=== PATIENT | male | born 1955 | race Caucasian/White ===

== ENCOUNTER → 2020-07-14 | Outpatient (CLI) | payer MEDICARE, OTHER ==
--- NOTE | 2020-07-14 19:27 | Diagnostic Imaging Report ---
INDICATION: Mantle cell lymphoma. The study is performed for subsequent restaging/recurrence detection. Serum blood glucose level at the time of injection is 110 mg/dL. Patient was administered 13.9 mCi F18 FDG intravenously and PET imaging was performed from the top of the skull to mid thighs. Noncontrast CT was also performed for attenuation correction and anatomic correlation. No prior PET/CT study is available for comparison. There is symmetric activity throughout the brain. There is hypermetabolic lymphadenopathy in the cervical spine and supraclavicular regions, bilateral axillae as well as the mediastinum and cardiophrenic angle on the right. There is significant hypermetabolic lymphadenopathy in the abdomen and pelvis as well, particularly in the central retroperitoneum but portacaval and retrocrural regions, as well. There is bulky hypermetabolic lymphadenopathy along the iliac chains in the inguinal regions bilaterally. SUV in the left iliac location is approximately 7. Right groin jeyson mass demonstrates SUV of 6.3. A left periaortic jeyson mass demonstrates SUV of 6.6. IMPRESSION: Significant hypermetabolic lymphadenopathy throughout the neck, chest, abdomen and pelvis. Dictated by: Dictated on workstation # [id number]
== END ==
LOC: RAD 13:30
PROVIDERS: ATTEND Internal Medicine Hematology & Oncology
DX: C83.10 Mantle cell lymphoma, unspecified site (principal); N63.32 Unspecified lump in axillary tail of the left breast; R19.03 Right lower quadrant abdominal swelling, mass and lump; R59.0 Localized enlarged lymph nodes
CPT/HCPCS: 78815; A9552

== ENCOUNTER 2020-07-21 05:36 | Outpatient (CLI) | payer MEDICARE, OTHER ==
[~2020-07-21] VITALS: Ht 162.6 cm; Wt 65.2 kg
[2020-07-21] MEDS ORDERED: TMSL.4C PO (11:43)
[2020-07-21] MEDS ORDERED: SIMV40TA25 PO (11:43)
[2020-07-21] MEDS ORDERED: PANT40TA52 PO (11:43)
[2020-07-21] MEDS ORDERED: ONDA4TAB11 PO (11:43)
[2020-07-21] MEDS ORDERED: HYDR-3820 PO (11:43)
== END 2020-07-21 11:52 | disposition home or self-care (01) ==
LOC: PREOP 05:36
PROVIDERS: ATTEND Surgery
DX: Z01.818 Encounter for other preprocedural examination (principal)

== ENCOUNTER 2020-07-24 05:54 | Day surgery (SDC) | payer MEDICARE, OTHER ==
[2020-07-24] VITALS (10 sets, daily range): BP systolic 94–122; BP diastolic 6–54
[~2020-07-24] VITALS: Ht 162.6 cm; Wt 65.2 kg
[~2020-07-24 05:54] MED LIST: HYDR-3820 PO; ONDA4TAB11 PO; PANT40TA52 PO; SIMV40TA25 PO; TMSL.4C PO
[2020-07-24] MEDS ORDERED: ceFAZolin INJECTION 1,000 MG in WATER (STERILE) FOR INJECTION 10 ML IV ONE (06:15)
[2020-07-24] MEDS ORDERED: LACTATED RINGERS 1,000 ML IV PRN (06:15)
[2020-07-24] MEDS ORDERED: CATHETER FLUSH 10 ML SYR IV PRN (06:30)
[2020-07-24] MEDS ORDERED: proPOfol 200 MG/20 ML (DIPRIVAN) VIAL IV ONE (06:53)
[2020-07-24] MEDS ORDERED: ONDANSETRON 4 MG/2 ML (SDV) Z0FRAN ONE (06:53)
[2020-07-24] MEDS ORDERED: SEVOFLURANE (ULTANE) 15 ML INHAL SOLN ONE ×5 (06:53→09:02)
[2020-07-24] MEDS ORDERED: fentaNYL INJ 100 MCG/2 ML AMP ONE (06:53)
[2020-07-24] MEDS ORDERED: MIDAZOLAM 2 MG/2 ML (VERSED) VIAL ONE (06:53)
[2020-07-24] MEDS ORDERED: LIDOCAINE PF 2% 5 ML (XYLOCAINE) VIAL ONE (06:53)
[2020-07-24] MEDS ORDERED: 0.9% SODIUM CHLORIDE PF INJ 20 ML VIAL ONE (07:12)
[2020-07-24] MEDS ORDERED: HEParin (CENTRAL IV FLUSH) 500 UNIT/5 ML SYR ONE (07:12)
[2020-07-24] MEDS ORDERED: LIDOCAINE/EPI 1%-1:100,000 (XYLOCAINE) 20ML ONE (07:12)
--- NOTE | 2020-07-24 07:56 | Progress Note-Pre Operative ---
Pre-Operative Progress Note H&P Reviewed The H&P was reviewed, patient examined and no changes noted. Date Seen by Provider: July 24, 2020 Time Seen by Provider: 07:46 Date H&P Reviewed: July 24, 2020 Time H&P Reviewed: 07:46 Pre-Operative Diagnosis: hx non-hodgkins, left axillary mass GREGORIA QUINN DO July 24, 2020 07:56
--- NOTE | 2020-07-24 09:18 | Discharge Inst-Simple/Standard ---
Discharge Inst-Standard Patient Instructions/Follow Up Plan of Care/Instructions/FU: 2 weeks Maryann Activity as Tolerated: No Discharge Diet: Regular Diet Other Inst to Patient Follow up Appt: Make appointment for 2 week. Instructions: No lifting greater than 10 pounds. No strenuous activity. May shower in 24 hours, no tub bath or soaking. Use incentive spirometer at home as directed. No Smoking Skin/Wound Care: You have special glue over your incision that will fall off on it's own. Place ice packs on 15 min and off 30 min and repeat to reduce swelling and discomfort. Port needs to be flushed at least every 90 days. Symptoms to Report: Appetite Changes, Extremity Discoloration, Numbness/Tingling, Swelling Increased, Bleeding Excessive, Eyesight Changes, Pain Increased, Urine Color Change, Constipation(Persistent), Fever over 101 degree F, Pain/Pressure in chest, Urinating Difficulty, Cough Up/Vomit Blood, Heart Beat Irreg/Pounding, Pain/Pressure in jaw, Vaginal Bleeding Increase, Cramps in feet or legs, Lightheadedness, Pain/Pressure in shoulder, Diarrhea(Persistent), Memory Changes Suddenly, Questions/Concerns, Weight gain consecutive days, Dizziness/Fainting, Nausea/Vomiting, Shortness of Breath, Weight gain over 2 pounds If questions or concerns contact your physician Or seek help at emergency department. GREGORIA QUINN DO July 24, 2020 09:18
--- NOTE | 2020-07-24 09:27 | Progress Note-Post Operative ---
Post-Operative Progess Note Surgeon (s)/Co Founder And Cto (s) Surgeon GREGORIA QUINN DO Co Founder And Cto: na Pre-Operative Diagnosis hx non-hodgkins, left axillary mass Post-Operative Diagnosis same Procedure & Operative Findings Date of Procedure 07/24/20 Procedure Performed/Findings PROCEDURE: Right internal jugular port placement using ultrasound guidance. Excision left axillary mass 7x3.5x3cm COMPLICATIONS: None. INDICATIONS: The patient is a 64 year old male with history of nonhodkin lymphoma, has large left axillary mass. We discussed excision of left axillary mass and wishes to proceed. Patient understands the risks and benefits of port placement and wished to proceed with the procedure. Consent was signed on the chart. PROCEDURE: The patient was taken to the operating suite, was prepped and draped in the sterile fashion. A surgical pause was performed. Ultrasound was used to locate the internal jugular vein. Once located anesthetic was infiltrated above it. Using micro-access kit, the right internal vein was accessed. Dark nonpulsatile blood was withdrawn. The wire was inserted. Fluoroscopy assured proper placement. The needle was removed. The micro-access dilator was advanced over the wire and the wire was removed. The regular wire was inserted and fluoroscopy assured proper placement. The wire was then secured. Local anesthetic was used to anesthetize from the neck for tunneling down to the right chest and for pocket creation. A 15 blade scalpel was used to make an incision over the right chest. Cautery was used to dissect down to the pectoral fascia. A pocket was created with blunt dissection. The dilator sheath was then advanced over the wire under fluoroscopy and the dilator and wire were removed. The Groshong catheter was inserted through the sheath and the sheath was then removed. The Groshong wire was removed. The catheter was then tunneled to the right chest pocket. Fluoroscopy was used to cut to length and this was then attached to the port which was then placed within the pocket. The port was then accessed without difficulty. It was then flushed with saline and then heparin. The subcutaneous tissues were then reapproximated using 3-0 Vicryl. The areas were then washed and dried. Skin Affix was placed over incision. The insertion point of the neck Skin Affix was placed over the incision. The left axillary mass was then palpated. 15 blade scalpel was used to make incision over mass. Cautery was used to dissect down through the subcutaneous tissues until mass encountered. Blunt and cautery dissection was continued to be performed until the mass could be dissected around in its entirety and removed. Specimen was 7x3.5x3cm. Wound was irrigated and hemostasis achieved. Specien was sent fresh to pathology. The subcutaneous tissues were reaproximated with 3-o vicryl and skin closed with 4-0 monocryl. Skin affix was placed over incision. The patient tolerated the procedure well without complication and was taken to recovery room in stable condition. Chest x-ray is pending. Anesthesia Type general Estimated Blood Loss Estimated blood loss (mL): minimal Specimens/Packing Specimens Removed left axillary mass GREGORIA QUINN DO July 24, 2020 09:27
--- NOTE | 2020-07-24 09:28 | Diagnostic Imaging Report ---
HISTORY: Port placement COMPARISON: None TECHNIQUE: Intraoperative fluoroscopy was used for the patient's procedure. A single fluoroscopic image of the chest was saved. FLUOROSCOPY TIME: 10.7 seconds FINDINGS: Fluoroscopic images demonstrate a right-sided Port-A-Cath with tip projecting over the mid SVC. There is a lead overlying the chest, and a hyperdense structure overlying the aortic arch. IMPRESSION: 1. The right Port-A-Cath tip projects over the SVC. Dictated by: Dictated on workstation # [id number]
--- NOTE | 2020-07-24 09:46 | Diagnostic Imaging Report ---
Portable erect AP chest at 9:27. There are no prior chest examinations available for comparison. As noted on the fluoroscopic exam performed prior to this study, there is a Port-A-Cath in place on the right. The tip of the catheter overlies the midportion of superior vena cava and seems to be in good position. There is no sign of a pneumothorax on the right. The lungs are generally clear. There is no evidence for failure, pneumonia or for pleural effusion. The heart size is within normal limits. The right hilum and the superior mediastinum on the right do seem prominent. The PET/CT exam performed on 07/14/2020 did note significant hypermetabolic lymphadenopathy throughout the neck, chest, abdomen and pelvis. The osseous structures are intact. Impression: 1. There has been insertion of a Port-A-Cath on the right without apparent complication. There is no acute cardiopulmonary abnormality noted. 2. The prominence of the right hilum and the right superior mediastinum is most likely due to the lymphadenopathy seen on the PET/CT exam. Dictated by: Dictated on workstation # [id number]
--- NOTE | 2020-07-24 11:09 | Anesthesia-General Post-Op ---
General Patient Condition Mental Status/LOC: Same as Preop Cardiovascular: Satisfactory Nausea/Vomiting: Absent Respiratory: Satisfactory Pain: Controlled Complications: Absent Post Op Complications Complications None Follow Up Care/Instructions Patient Instructions None needed. Anesthesia/Patient Condition Patient Condition Patient is doing well, no complaints, stable vital signs, no apparent adverse anesthesia problems. No complications reported per nursing. AZEB AGUIRRE CRNA July 24, 2020 11:09
== END 2020-07-24 11:30 | disposition home or self-care (01) ==
LOC: SDC 05:54
PROVIDERS: ATTEND Surgery
DX: C85.14 Unspecified B-cell lymphoma, lymph nodes of axilla and upper limb (principal); K21.9 Gastro-esophageal reflux disease without esophagitis; R63.4 Abnormal weight loss; F17.210 Nicotine dependence, cigarettes, uncomplicated; Z96.653 Presence of artificial knee joint, bilateral; Z79.899 Other long term (current) drug therapy; Z82.49 Family history of ischemic heart disease and other diseases of the circulatory system; Z83.6 Family history of other diseases of the respiratory system
CPT/HCPCS: 36561; 38500; 71045; 76000; 87081; C1788

== ENCOUNTER → 2020-09-04 | Outpatient (CLI) | payer MEDICARE, OTHER ==
[~2020-09-04] MED LIST changes: +CATHETER FLUSH 10 ML SYR IV PRN
--- NOTE | 2020-09-04 16:49 | Diagnostic Imaging Report ---
INDICATION: Antineoplastic chemotherapy. Patient was administered 30.4 mCi technetium-99m pertechnetate labeled to the patient's red blood cells, and imaging of the chest was performed. The left ventricular ejection fraction is normal at 62%. IMPRESSION: Left ventricular ejection fraction 62%. Dictated by: Dictated on workstation # [id number]
== END ==
LOC: CARD 14:00
PROVIDERS: ATTEND Internal Medicine Hematology & Oncology
DX: Z51.11 Encounter for antineoplastic chemotherapy (principal); C83.10 Mantle cell lymphoma, unspecified site
CPT/HCPCS: 78472; A9560

== ENCOUNTER 2020-09-29 08:55 | Outpatient (RCR) | payer MEDICARE, OTHER ==
[2020-07-09 16:00] LABS: BASOPHILS % (AUTO) 1 % (0-10); EOSINOPHILS # (AUTO) 0.2 10^3/uL (0.0-0.3); EOSINOPHILS % (AUTO) 3 % (0-10); HEMATOCRIT 41 % (40-54); LYMPHOCYTES # (AUTO) 0.8 10^3/uL (1.0-4.0); LYMPHOCYTES % (AUTO) 16 % (12-44); MEAN CORPUSCULAR HEMOGLOBIN 29 pg (25-34); MEAN CORPUSCULAR HGB CONC 32 g/dL (32-36); MEAN CORPUSCULAR VOLUME 93 fL (80-99); MONOCYTES # (AUTO) 0.4 10^3/uL (0.0-1.0); MONOCYTES % (AUTO) 8 % (0-12); NEUTROPHILS # (AUTO) 3.5 10^3/uL (1.8-7.8); NEUTROPHILS % (AUTO) 72 % (42-75); PLATELET COUNT 162 10^3/uL (130-400); WHITE BLOOD COUNT 4.9 10^3/uL (4.3-11.0)
[2020-07-09 16:41] LABS: ALANINE AMINOTRANSFERASE 8 U/L (0-55); ALBUMIN 3.9 GM/DL (3.2-4.5); ALKALINE PHOSPHATASE 65 U/L (40-136); BILIRUBIN,TOTAL 0.6 MG/DL (0.1-1.0); BUN/CREATININE RATIO 15; CALCIUM 8.8 MG/DL (8.5-10.1); CARBON DIOXIDE 35 MMOL/L (21-32); CHLORIDE 101 MMOL/L (98-107); CREATININE SERUM 0.87 MG/DL (0.60-1.30); GFR ESTIMATED > 60; GLUCOSE 82 MG/DL (70-105); POTASSIUM 3.8 MMOL/L (3.6-5.0); SODIUM 139 MMOL/L (135-145); TOTAL PROTEIN 6.5 GM/DL (6.4-8.2); URIC ACID 5.6 MG/DL (2.6-7.2)
[2020-08-26 15:53] LABS: BASOPHILS % (AUTO) 0 % (0-10); EOSINOPHILS % (AUTO) 1 % (0-10); HEMATOCRIT 45 % (40-54); HEMOGLOBIN 14.2 g/dL (13.3-17.7); LYMPHOCYTES # (AUTO) 0.6 10^3/uL (1.0-4.0); LYMPHOCYTES % (AUTO) 14 % (12-44); MEAN CORPUSCULAR HEMOGLOBIN 29 pg (25-34); MEAN CORPUSCULAR HGB CONC 32 g/dL (32-36); MEAN CORPUSCULAR VOLUME 92 fL (80-99); MEAN PLATELET VOLUME 10.1 fL (9.0-12.2); MONOCYTES # (AUTO) 0.2 10^3/uL (0.0-1.0); MONOCYTES % (AUTO) 6 % (0-12); NEUTROPHILS # (AUTO) 3.4 10^3/uL (1.8-7.8); NEUTROPHILS % (AUTO) 80 % (42-75); PLATELET COUNT 182 10^3/uL (130-400); WHITE BLOOD COUNT 4.2 10^3/uL (4.3-11.0)
[2020-08-26 16:30] LABS: ALANINE AMINOTRANSFERASE 11 U/L (0-55); ALBUMIN 4.1 GM/DL (3.2-4.5); ALKALINE PHOSPHATASE 68 U/L (40-136); BILIRUBIN,TOTAL 0.4 MG/DL (0.1-1.0); BUN/CREATININE RATIO 12; CALCIUM 9.4 MG/DL (8.5-10.1); CARBON DIOXIDE 29 MMOL/L (21-32); CHLORIDE 102 MMOL/L (98-107); CREATININE SERUM 0.85 MG/DL (0.60-1.30); GFR ESTIMATED > 60; GLUCOSE 151 MG/DL (70-105); POTASSIUM 4.6 MMOL/L (3.6-5.0); SODIUM 140 MMOL/L (135-145); TOTAL PROTEIN 6.8 GM/DL (6.4-8.2)
[2020-08-27 21:20] LABS: HEPATITIS C ANTIBODY C Non-Reactive (Non-Reactive)
[2020-09-08 09:04] LABS: HEMATOCRIT 41 % (40-54); HEMOGLOBIN 12.8 g/dL (13.3-17.7); MEAN CORPUSCULAR HGB CONC 32 g/dL (32-36)
[2020-09-08 09:06] LABS: BASOPHILS # (AUTO) 0.1 10^3/uL (0.0-0.1); BASOPHILS % (AUTO) 1 % (0-10); EOSINOPHILS # (AUTO) 0.6 10^3/uL (0.0-0.3); EOSINOPHILS % (AUTO) 11 % (0-10); LYMPHOCYTES # (AUTO) 0.8 10^3/uL (1.0-4.0); LYMPHOCYTES % (AUTO) 17 % (12-44); MEAN CORPUSCULAR HEMOGLOBIN 29 pg (25-34); MEAN CORPUSCULAR VOLUME 93 fL (80-99); MEAN PLATELET VOLUME 10.3 fL (9.0-12.2); MONOCYTES # (AUTO) 0.4 10^3/uL (0.0-1.0); MONOCYTES % (AUTO) 8 % (0-12); NEUTROPHILS # (AUTO) 3.2 10^3/uL (1.8-7.8); NEUTROPHILS % (AUTO) 63 % (42-75); PLATELET COUNT 133 10^3/uL (130-400)
[2020-09-08 09:18] LABS: BUN/CREATININE RATIO 9; CALCIUM 8.7 MG/DL (8.5-10.1); CARBON DIOXIDE 29 MMOL/L (21-32); CHLORIDE 104 MMOL/L (98-107); GFR ESTIMATED > 60; GLUCOSE 97 MG/DL (70-105); SODIUM 141 MMOL/L (135-145)
[~2020-09-29] VITALS: Ht 162.6 cm; Wt 65.3 kg
[~2020-09-29 08:55] MED LIST changes: +ACETAMINOPHEN 325 MG TAB (TYLENOL) CANCER CTR ONE; +ACETAMINOPHEN 500 MG TAB (TYLENOL) CANCER CTR PO PRN; -CATHETER FLUSH 10 ML SYR IV PRN; +CENTER ONLY IV SCH; +CYCLOPHOSPHAMIDE IV SCH; +FAMOTIDINE 20MG/2ML IV (CANCER CTR) ONE; +FOSAPREPITANT (CANCER CENTER) 150 MG in NS (IVPB) CANCER CENTER ONLY 150 ML IV SCH; +NS IV 1000 ML (CANCER CTR) IV SCH; +NS IV SCH; +RITUXIMAB ABBS IV SCH; +[UNRECOGNIZED DRUG - OTHER] IV SCH; +diphenhydrAMINE 25 MG TAB (BENADRYL) CANCER CENTER PO SCH; +diphenhydrAMINE 50 MG/ML INJ (CANCER CENTER) ONE; +vinCRIStine SULFATE 2 MG in NS (IVPB) CANCER CENTER 50 ML IV SCH
[2020-09-29 09:14] LABS: BASOPHILS % (AUTO) 1 % (0-10); EOSINOPHILS % (AUTO) 0 % (0-10); HEMATOCRIT 41 % (40-54); HEMOGLOBIN 13.1 g/dL (13.3-17.7); LYMPHOCYTES # (AUTO) 0.4 10^3/uL (1.0-4.0); LYMPHOCYTES % (AUTO) 13 % (12-44); MEAN CORPUSCULAR HEMOGLOBIN 30 pg (25-34); MEAN CORPUSCULAR HGB CONC 32 g/dL (32-36); MEAN CORPUSCULAR VOLUME 92 fL (80-99); MEAN PLATELET VOLUME 9.8 fL (9.0-12.2); MONOCYTES # (AUTO) 0.9 10^3/uL (0.0-1.0); MONOCYTES % (AUTO) 29 % (0-12); NEUTROPHILS # (AUTO) 1.9 10^3/uL (1.8-7.8); NEUTROPHILS % (AUTO) 57 % (42-75); PLATELET COUNT 274 10^3/uL (130-400); WHITE BLOOD COUNT 3.3 10^3/uL (4.3-11.0)
[2020-09-29 09:34] LABS: ALBUMIN 3.9 GM/DL (3.2-4.5); BILIRUBIN,TOTAL 0.4 MG/DL (0.1-1.0); CALCIUM 9.1 MG/DL (8.5-10.1); CREATININE SERUM 0.77 MG/DL (0.60-1.30); POTASSIUM 4.2 MMOL/L (3.6-5.0); TOTAL PROTEIN 6.7 GM/DL (6.4-8.2); URIC ACID 3.4 MG/DL (2.6-7.2)
[2020-09-29] MEDS ORDERED: FAMOTIDINE 20MG/2ML IV (CANCER CTR) ONE (09:37)
[2020-09-29] MEDS ORDERED: ACETAMINOPHEN 325 MG TAB (TYLENOL) CANCER CTR ONE (09:37)
== END 2020-10-07 | disposition home or self-care (01) ==
LOC: ONC 08:55
PROVIDERS: ATTEND Internal Medicine Hematology & Oncology
DX: Z51.11 Encounter for antineoplastic chemotherapy (principal); C85.15 Unspecified B-cell lymphoma, lymph nodes of inguinal region and lower limb; K21.9 Gastro-esophageal reflux disease without esophagitis; I71.9 Aortic aneurysm of unspecified site, without rupture; C83.10 Mantle cell lymphoma, unspecified site; N63.32 Unspecified lump in axillary tail of the left breast; Z98.1 Arthrodesis status; F17.210 Nicotine dependence, cigarettes, uncomplicated; Z79.899 Other long term (current) drug therapy
CPT/HCPCS: 80053; 83615; 84550; 85025; G0463; 36591; 80048; 80074; 96367; 96375; 96411; 96413; 96415; 96417; 99213; 99214

== ENCOUNTER → 2020-11-05 | Outpatient (CLI) | payer MEDICARE, OTHER ==
[~2020-11-05] MED LIST changes: -ACETAMINOPHEN 325 MG TAB (TYLENOL) CANCER CTR ONE; -ACETAMINOPHEN 500 MG TAB (TYLENOL) CANCER CTR PO PRN; +BARIUM SUSPENSION 2.1% (VANILLA SILQ) 450 ML PO ONE; +CATHETER FLUSH 10 ML SYR IV PRN; -CENTER ONLY IV SCH; -CYCLOPHOSPHAMIDE IV SCH; -FAMOTIDINE 20MG/2ML IV (CANCER CTR) ONE; -FOSAPREPITANT (CANCER CENTER) 150 MG in NS (IVPB) CANCER CENTER ONLY 150 ML IV SCH; +HOLD METFORMIN - RECEIVED CONTRAST 20 ML VIAL IV SCH; +IOHEXOL 350 MG/ML 100 ML (OMNIPAQUE 350) VIAL IV ONE; +NS 100 ML (IVPB) BAG IV ONE; -NS IV 1000 ML (CANCER CTR) IV SCH; -NS IV SCH; -RITUXIMAB ABBS IV SCH; -[UNRECOGNIZED DRUG - OTHER] IV SCH; -diphenhydrAMINE 25 MG TAB (BENADRYL) CANCER CENTER PO SCH; -diphenhydrAMINE 50 MG/ML INJ (CANCER CENTER) ONE; -vinCRIStine SULFATE 2 MG in NS (IVPB) CANCER CENTER 50 ML IV SCH
--- NOTE | 2020-11-05 11:39 | Diagnostic Imaging Report ---
PROCEDURE: CT chest, abdomen, and pelvis with contrast. TECHNIQUE: Multiple contiguous axial images were obtained through the chest, abdomen, and pelvis after the administration of intravenous contrast. Auto Exposure Controls were utilized during the CT exam to meet ALARA standards for radiation dose reduction. INDICATION: Mantle cell lymphoma of lymph nodes. COMPARISON: PET scan dated 07/14/2020. CT CHEST: Since the previous study, there has been no adverse change. A 0.6 cm subpleural nodule is again seen in the posterior right lower lobe. There is no evidence of pathologically enlarged adenopathy within the pulmonary irvin or mediastinum. 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 There are continued enlarged axillary lymph nodes with the largest reaching 2.6 cm in long axis. These have decreased in bulk when compared to the previous study. There is no significant pleural or pericardial fluid. IMPRESSION: Decreasing bilateral axillary adenopathy with stable fusiform aortic aneurysm. CT ABDOMEN AND PELVIS: No focal hepatic, gallbladder, pancreatic, adrenal gland or splenic lesion is identified. Kidneys are also unremarkable in appearance without significant change. The large retroperitoneal mass encasing the abdominal aorta has a generally stable appearance and may be slightly decreased with maximum dimensions of approximately 7.9 x 3.2 cm on the current study. This measured up to 9.0 x 3.2 cm on the previous examination. There is also decrease in size of left external iliac adenopathy which now measures 3.7 x 6.4 cm compared with 5.3 x 8.9 cm. There is continued abnormal soft tissue along the right iliac chain as well. There appears to be significant reduction in inguinal adenopathy with largest right inguinal lymph node measuring 2 cm in long axis. Partially opacified urinary bladder is unremarkable. IMPRESSION: At least mild reduction in overall volume of bulky retroperitoneal and iliac as well as inguinal adenopathy. Follow-up PET imaging would be useful. Dictated by: Dictated on workstation # [id number]
== END ==
LOC: RAD 09:43
PROVIDERS: ATTEND Internal Medicine Hematology & Oncology
DX: I71.9 Aortic aneurysm of unspecified site, without rupture (principal); C83.18 Mantle cell lymphoma, lymph nodes of multiple sites
CPT/HCPCS: 71260; 74177

== ENCOUNTER 2020-12-22 10:55 | Outpatient (RCR) | payer MEDICARE, OTHER ==
[2020-10-20 09:06] LABS: BASOPHILS # (AUTO) 0.1 10^3/uL (0.0-0.1); BASOPHILS % (AUTO) 1 % (0-10); EOSINOPHILS % (AUTO) 1 % (0-10); HEMATOCRIT 38 % (40-54); HEMOGLOBIN 12.3 g/dL (13.3-17.7); LYMPHOCYTES # (AUTO) 0.4 10^3/uL (1.0-4.0); LYMPHOCYTES % (AUTO) 11 % (12-44); MEAN CORPUSCULAR HEMOGLOBIN 30 pg (25-34); MEAN CORPUSCULAR HGB CONC 32 g/dL (32-36); MEAN CORPUSCULAR VOLUME 93 fL (80-99); MONOCYTES # (AUTO) 0.7 10^3/uL (0.0-1.0); MONOCYTES % (AUTO) 19 % (0-12); NEUTROPHILS # (AUTO) 2.3 10^3/uL (1.8-7.8); NEUTROPHILS % (AUTO) 67 % (42-75); PLATELET COUNT 263 10^3/uL (130-400); WHITE BLOOD COUNT 3.5 10^3/uL (4.3-11.0)
[2020-10-20 09:23] LABS: ALBUMIN 3.8 GM/DL (3.2-4.5); BILIRUBIN,TOTAL 0.3 MG/DL (0.1-1.0); CALCIUM 9.1 MG/DL (8.5-10.1); CREATININE SERUM 0.8 MG/DL (0.60-1.30); POTASSIUM 3.8 MMOL/L (3.6-5.0); TOTAL PROTEIN 6.4 GM/DL (6.4-8.2); URIC ACID 5.2 MG/DL (2.6-7.2)
[2020-11-11 13:32] LABS: BASOPHILS # (AUTO) 0.1 10^3/uL (0.0-0.1); BASOPHILS % (AUTO) 1 % (0-10); EOSINOPHILS # (AUTO) 0.1 10^3/uL (0.0-0.3); EOSINOPHILS % (AUTO) 1 % (0-10); HEMATOCRIT 37 % (40-54); HEMOGLOBIN 11.8 g/dL (13.3-17.7); LYMPHOCYTES # (AUTO) 0.4 10^3/uL (1.0-4.0); LYMPHOCYTES % (AUTO) 8 % (12-44); MEAN CORPUSCULAR HEMOGLOBIN 30 pg (25-34); MEAN CORPUSCULAR HGB CONC 32 g/dL (32-36); MEAN CORPUSCULAR VOLUME 93 fL (80-99); MEAN PLATELET VOLUME 10.2 fL (9.0-12.2); MONOCYTES # (AUTO) 0.9 10^3/uL (0.0-1.0); MONOCYTES % (AUTO) 19 % (0-12); NEUTROPHILS # (AUTO) 3.3 10^3/uL (1.8-7.8); NEUTROPHILS % (AUTO) 70 % (42-75); PLATELET COUNT 270 10^3/uL (130-400); WHITE BLOOD COUNT 4.8 10^3/uL (4.3-11.0)
[2020-11-11 13:54] LABS: ALBUMIN 3.8 GM/DL (3.2-4.5); BILIRUBIN,TOTAL 0.3 MG/DL (0.1-1.0); CREATININE SERUM 0.75 MG/DL (0.60-1.30); POTASSIUM 3.7 MMOL/L (3.6-5.0); TOTAL PROTEIN 6.1 GM/DL (6.4-8.2)
[2020-12-01 09:22] LABS: BASOPHILS % (AUTO) 1 % (0-10); EOSINOPHILS % (AUTO) 2 % (0-10); HEMATOCRIT 34 % (40-54); HEMOGLOBIN 10.8 g/dL (13.3-17.7); LYMPHOCYTES # (AUTO) 0.2 10^3/uL (1.0-4.0); LYMPHOCYTES % (AUTO) 12 % (12-44); MEAN CORPUSCULAR HEMOGLOBIN 30 pg (25-34); MEAN CORPUSCULAR HGB CONC 32 g/dL (32-36); MEAN CORPUSCULAR VOLUME 93 fL (80-99); MONOCYTES # (AUTO) 0.6 10^3/uL (0.0-1.0); MONOCYTES % (AUTO) 31 % (0-12); NEUTROPHILS # (AUTO) 1.1 10^3/uL (1.8-7.8); NEUTROPHILS % (AUTO) 54 % (42-75); PLATELET COUNT 208 10^3/uL (130-400)
[2020-12-01 09:42] LABS: ALBUMIN 3.6 GM/DL (3.2-4.5); BILIRUBIN,TOTAL 0.4 MG/DL (0.1-1.0); CALCIUM 8.9 MG/DL (8.5-10.1); CREATININE SERUM 0.74 MG/DL (0.60-1.30); POTASSIUM 3.8 MMOL/L (3.6-5.0); TOTAL PROTEIN 6.1 GM/DL (6.4-8.2)
[~2020-12-22 10:55] MED LIST changes: +ACETAMINOPHEN 325 MG TAB (TYLENOL) CANCER CTR ONE; +ACETAMINOPHEN 500 MG TAB (TYLENOL) CANCER CTR PO PRN; -BARIUM SUSPENSION 2.1% (VANILLA SILQ) 450 ML PO ONE; -CATHETER FLUSH 10 ML SYR IV PRN; +CENTER ONLY IV SCH; +CYCLOPHOSPHAMIDE IV SCH; +FAMOTIDINE 20MG/2ML IV (CANCER CTR) ONE; +FOSAPREPITANT (CANCER CENTER) 150 MG in NS (IVPB) CANCER CENTER ONLY 150 ML IV SCH; -HOLD METFORMIN - RECEIVED CONTRAST 20 ML VIAL IV SCH; -IOHEXOL 350 MG/ML 100 ML (OMNIPAQUE 350) VIAL IV ONE; -NS 100 ML (IVPB) BAG IV ONE; +NS IV 1000 ML (CANCER CTR) IV SCH; +NS IV SCH; +RITUXIMAB ABBS IV SCH; +[UNRECOGNIZED DRUG - OTHER] IV SCH; +diphenhydrAMINE 25 MG TAB (BENADRYL) CANCER CENTER PO SCH; +vinCRIStine SULFATE 2 MG in NS (IVPB) CANCER CENTER 50 ML IV SCH
[2020-12-22 11:23] LABS: BASOPHILS % (AUTO) 1 % (0-10); EOSINOPHILS % (AUTO) 1 % (0-10); HEMATOCRIT 32 % (40-54); HEMOGLOBIN 10.1 g/dL (13.3-17.7); LYMPHOCYTES # (AUTO) 0.3 10^3/uL (1.0-4.0); LYMPHOCYTES % (AUTO) 8 % (12-44); MEAN CORPUSCULAR HEMOGLOBIN 29 pg (25-34); MEAN CORPUSCULAR HGB CONC 32 g/dL (32-36); MEAN CORPUSCULAR VOLUME 93 fL (80-99); MONOCYTES # (AUTO) 0.5 10^3/uL (0.0-1.0); MONOCYTES % (AUTO) 13 % (0-12); NEUTROPHILS # (AUTO) 2.9 10^3/uL (1.8-7.8); NEUTROPHILS % (AUTO) 78 % (42-75); PLATELET COUNT 235 10^3/uL (130-400); WHITE BLOOD COUNT 3.8 10^3/uL (4.3-11.0)
[2020-12-22 11:47] LABS: ALBUMIN 3.6 GM/DL (3.2-4.5); BILIRUBIN,TOTAL 0.4 MG/DL (0.1-1.0); CALCIUM 8.8 MG/DL (8.5-10.1); CREATININE SERUM 0.78 MG/DL (0.60-1.30); POTASSIUM 3.6 MMOL/L (3.6-5.0)
[2020-12-22] MEDS ORDERED: ACETAMINOPHEN 325 MG TAB (TYLENOL) CANCER CTR ONE (12:02)
[2020-12-22] MEDS ORDERED: FAMOTIDINE 20MG/2ML IV (CANCER CTR) ONE (12:07)
== END 2021-01-18 | disposition home or self-care (01) ==
LOC: ONC 10:55
PROVIDERS: ATTEND Internal Medicine Hematology & Oncology
DX: Z51.11 Encounter for antineoplastic chemotherapy (principal); C85.15 Unspecified B-cell lymphoma, lymph nodes of inguinal region and lower limb; C83.18 Mantle cell lymphoma, lymph nodes of multiple sites; G62.9 Polyneuropathy, unspecified; K21.9 Gastro-esophageal reflux disease without esophagitis; I71.9 Aortic aneurysm of unspecified site, without rupture; Z98.1 Arthrodesis status; Z87.891 Personal history of nicotine dependence
CPT/HCPCS: 80053; 84550; 85025; 96367; 96375; 96411; 96413; 96417; G0463; 36591

== ENCOUNTER → 2021-01-19 | Outpatient (CLI) | payer MEDICARE, OTHER ==
[~2021-01-19] MED LIST changes: -ACETAMINOPHEN 325 MG TAB (TYLENOL) CANCER CTR ONE; -ACETAMINOPHEN 500 MG TAB (TYLENOL) CANCER CTR PO PRN; -CENTER ONLY IV SCH; -CYCLOPHOSPHAMIDE IV SCH; -FAMOTIDINE 20MG/2ML IV (CANCER CTR) ONE; -FOSAPREPITANT (CANCER CENTER) 150 MG in NS (IVPB) CANCER CENTER ONLY 150 ML IV SCH; -NS IV 1000 ML (CANCER CTR) IV SCH; -NS IV SCH; -RITUXIMAB ABBS IV SCH; -[UNRECOGNIZED DRUG - OTHER] IV SCH; -diphenhydrAMINE 25 MG TAB (BENADRYL) CANCER CENTER PO SCH; -vinCRIStine SULFATE 2 MG in NS (IVPB) CANCER CENTER 50 ML IV SCH
--- NOTE | 2021-01-19 12:58 | Diagnostic Imaging Report ---
INDICATION: Mantle cell lymphoma. Study is performed for restaging and to assess treatment response. TECHNIQUE: Serum blood glucose level at the time of injection was 110 mg/dL. Patient was administered 15.0 mCi F-18 FDG intravenously in the right antecubital location, and PET imaging was performed from the top of the skull to mid thighs. Noncontrast CT was also performed for attenuation correction and anatomic correlation. COMPARISON: Comparison is made with prior PET/CT study from 07/14/[address] study from 11/05/2020. FINDINGS: There is symmetric activity throughout the brain. There has been significant treatment response. There has been marked reduction or elimination of the hypermetabolic activity throughout the cervical lymph nodes, axillae, and mediastinum. There has also been significant response to treatment involving hypermetabolic lymph nodes in the portacaval location, central retroperitoneum, as well as bilateral iliac and inguinal regions. No hypermetabolism in the cervical spine is seen. In addition, mediastinum and irvin as well as axillae show absence of hypermetabolic activity. There has also been significant reduction in size of previously noted lymph nodes. Abdomen and pelvis show marked improvement. The hypermetabolic lymph nodes in the central retroperitoneum have significantly reduced in size and no longer appear hypermetabolic. There is some residual activity within left iliac chain nodes; however, the activity is now very low level. Bilateral inguinal regions show absence of hypermetabolic activity. IMPRESSION: Marked treatment response where there is now near-complete resolution of hypermetabolic activity within lymph nodes in the neck, chest, abdomen, and pelvis. Dictated by: Dictated on workstation # [id number]
== END ==
LOC: RAD 09:00
PROVIDERS: ATTEND Internal Medicine Hematology & Oncology
DX: C83.18 Mantle cell lymphoma, lymph nodes of multiple sites (principal)
CPT/HCPCS: 78815; A9552

== ENCOUNTER 2021-02-03 13:18 | Outpatient (RCR) | payer MEDICARE, OTHER ==
[2021-01-26 14:36] LABS: BASOPHILS % (AUTO) 1 % (0-10); EOSINOPHILS % (AUTO) 1 % (0-10); HEMATOCRIT 36 % (40-54); HEMOGLOBIN 11.4 g/dL (13.3-17.7); LYMPHOCYTES # (AUTO) 0.5 10^3/uL (1.0-4.0); LYMPHOCYTES % (AUTO) 12 % (12-44); MEAN CORPUSCULAR HEMOGLOBIN 29 pg (25-34); MEAN CORPUSCULAR HGB CONC 31 g/dL (32-36); MEAN CORPUSCULAR VOLUME 92 fL (80-99); MEAN PLATELET VOLUME 10.4 fL (9.0-12.2); MONOCYTES # (AUTO) 0.7 10^3/uL (0.0-1.0); MONOCYTES % (AUTO) 18 % (0-12); NEUTROPHILS # (AUTO) 2.8 10^3/uL (1.8-7.8); NEUTROPHILS % (AUTO) 69 % (42-75); PLATELET COUNT 162 10^3/uL (130-400); WHITE BLOOD COUNT 4.1 10^3/uL (4.3-11.0)
[2021-01-26 14:54] LABS: ALBUMIN 3.7 GM/DL (3.2-4.5); BILIRUBIN,TOTAL 0.4 MG/DL (0.1-1.0); CALCIUM 8.7 MG/DL (8.5-10.1); CREATININE SERUM 0.76 MG/DL (0.60-1.30); POTASSIUM 3.6 MMOL/L (3.6-5.0); TOTAL PROTEIN 6.2 GM/DL (6.4-8.2)
[~2021-02-03] VITALS: Ht 162.6 cm; Wt 65.3 kg
[~2021-02-03 13:18] MED LIST changes: +CENTER ONLY IV SCH; +NS IV 1000 ML (CANCER CTR) 1,000 ML IV SCH; +NS IV SCH; +RITUXIMAB ABBS IV SCH
[2021-02-03] MEDS ORDERED: diphenhydrAMINE 25 MG TAB (BENADRYL) CANCER CENTER PO ONE (13:31)
[2021-02-03] MEDS ORDERED: ACETAMINOPHEN 325 MG TAB (TYLENOL) CANCER CTR ONE (13:31)
== END 2021-02-26 | disposition home or self-care (01) ==
LOC: ONC 13:18
PROVIDERS: ATTEND Internal Medicine Hematology & Oncology
DX: Z51.11 Encounter for antineoplastic chemotherapy (principal); C85.10 Unspecified B-cell lymphoma, unspecified site; C83.18 Mantle cell lymphoma, lymph nodes of multiple sites; G62.9 Polyneuropathy, unspecified; K21.9 Gastro-esophageal reflux disease without esophagitis; I71.9 Aortic aneurysm of unspecified site, without rupture; Z98.1 Arthrodesis status; Z87.891 Personal history of nicotine dependence
CPT/HCPCS: 80053; 85025; G0463; 96413; 99213

== ENCOUNTER 2021-04-02 09:23 | Outpatient (RCR) | payer MEDICARE, OTHER ==
[2021-04-02 10:23] LABS: BASOPHILS % (AUTO) 0 % (0-10); EOSINOPHILS # (AUTO) 0.2 10^3/uL (0.0-0.3); EOSINOPHILS % (AUTO) 4 % (0-10); HEMATOCRIT 42 % (40-54); HEMOGLOBIN 13.7 g/dL (13.3-17.7); LYMPHOCYTES # (AUTO) 0.6 10^3/uL (1.0-4.0); LYMPHOCYTES % (AUTO) 11 % (12-44); MEAN CORPUSCULAR HEMOGLOBIN 30 pg (25-34); MEAN CORPUSCULAR HGB CONC 33 g/dL (32-36); MEAN CORPUSCULAR VOLUME 91 fL (80-99); MEAN PLATELET VOLUME 10.4 fL (9.0-12.2); MONOCYTES # (AUTO) 0.3 10^3/uL (0.0-1.0); MONOCYTES % (AUTO) 7 % (0-12); NEUTROPHILS % (AUTO) 78 % (42-75); PLATELET COUNT 159 10^3/uL (130-400); WHITE BLOOD COUNT 5.1 10^3/uL (4.3-11.0)
[2021-04-02] MEDS ORDERED: ACETAMINOPHEN 500 MG TAB (TYLENOL) CANCER CTR PO PRN (10:45)
[2021-04-02] MEDS ORDERED: diphenhydrAMINE 25 MG TAB (BENADRYL) CANCER CENTER PO SCH (10:45)
[2021-04-02 10:47] LABS: ALBUMIN 4.2 GM/DL (3.2-4.5); BILIRUBIN,TOTAL 0.4 MG/DL (0.1-1.0); CALCIUM 9.2 MG/DL (8.5-10.1); CREATININE SERUM 0.76 MG/DL (0.60-1.30); POTASSIUM 4.3 MMOL/L (3.6-5.0); TOTAL PROTEIN 7.2 GM/DL (6.4-8.2)
== END 2021-04-26 | disposition home or self-care (01) ==
LOC: ONC 09:23
PROVIDERS: ATTEND Internal Medicine Hematology & Oncology
DX: C83.18 Mantle cell lymphoma, lymph nodes of multiple sites (principal); C85.10 Unspecified B-cell lymphoma, unspecified site; G62.9 Polyneuropathy, unspecified; K21.9 Gastro-esophageal reflux disease without esophagitis; I71.9 Aortic aneurysm of unspecified site, without rupture; M50.20 Other cervical disc displacement, unspecified cervical region; Z98.1 Arthrodesis status; Z87.891 Personal history of nicotine dependence; Z45.2 Encounter for adjustment and management of vascular access device
CPT/HCPCS: 80053; 85025; 96365; G0463; 36591

== ENCOUNTER 2021-05-28 09:14 | Outpatient (RCR) | payer MEDICARE, OTHER ==
[~2021-05-28] VITALS: Ht 162.6 cm; Wt 66.2 kg
[~2021-05-28 09:14] MED LIST changes: +ACETAMINOPHEN 500 MG TAB (TYLENOL) PO SCH; +HEParin (CENTRAL IV FLUSH) 500 UNIT/5 ML SYR IV PRN; -NS IV 1000 ML (CANCER CTR) 1,000 ML IV SCH; +NS IV 1000 ML (CANCER CTR) IV SCH; +diphenhydrAMINE 25 MG TAB (BENADRYL) PO SCH
[2021-05-28 09:50] LABS: BASOPHILS % (AUTO) 0 % (0-10); EOSINOPHILS # (AUTO) 0.1 10^3/uL (0.0-0.3); EOSINOPHILS % (AUTO) 3 % (0-10); HEMATOCRIT 43 % (40-54); HEMOGLOBIN 13.6 g/dL (13.3-17.7); LYMPHOCYTES # (AUTO) 0.4 10^3/uL (1.0-4.0); LYMPHOCYTES % (AUTO) 17 % (12-44); MEAN CORPUSCULAR HEMOGLOBIN 29 pg (25-34); MEAN CORPUSCULAR HGB CONC 32 g/dL (32-36); MEAN CORPUSCULAR VOLUME 92 fL (80-99); MEAN PLATELET VOLUME 10.6 fL (9.0-12.2); MONOCYTES # (AUTO) 0.4 10^3/uL (0.0-1.0); MONOCYTES % (AUTO) 18 % (0-12); NEUTROPHILS # (AUTO) 1.5 10^3/uL (1.8-7.8); NEUTROPHILS % (AUTO) 61 % (42-75); PLATELET COUNT 165 10^3/uL (130-400); WHITE BLOOD COUNT 2.4 10^3/uL (4.3-11.0)
[2021-05-28 10:10] LABS: ALBUMIN 4.2 GM/DL (3.2-4.5); BILIRUBIN,TOTAL 0.7 MG/DL (0.1-1.0); CREATININE SERUM 0.86 MG/DL (0.60-1.30); POTASSIUM 3.7 MMOL/L (3.6-5.0); TOTAL PROTEIN 6.7 GM/DL (6.4-8.2)
== END 2021-06-26 | disposition home or self-care (01) ==
LOC: ONC 09:14
PROVIDERS: ATTEND Internal Medicine Hematology & Oncology
DX: Z51.11 Encounter for antineoplastic chemotherapy (principal); Z45.2 Encounter for adjustment and management of vascular access device; C83.18 Mantle cell lymphoma, lymph nodes of multiple sites; C85.10 Unspecified B-cell lymphoma, unspecified site; G62.9 Polyneuropathy, unspecified; K21.9 Gastro-esophageal reflux disease without esophagitis; I71.9 Aortic aneurysm of unspecified site, without rupture; M50.20 Other cervical disc displacement, unspecified cervical region; Z98.1 Arthrodesis status; Z87.891 Personal history of nicotine dependence
CPT/HCPCS: 80053; 85025; 96360; 96375; 96413; 96415; G0463; 36591; 99213

== ENCOUNTER 2021-07-28 08:43 | Outpatient (RCR) | payer MEDICARE, OTHER ==
[2021-07-28 09:18] LABS: BASOPHILS % (AUTO) 1 % (0-10); EOSINOPHILS # (AUTO) 0.2 10^3/uL (0.0-0.3); EOSINOPHILS % (AUTO) 5 % (0-10); HEMATOCRIT 41 % (40-54); HEMOGLOBIN 13.2 g/dL (13.3-17.7); LYMPHOCYTES # (AUTO) 0.4 10^3/uL (1.0-4.0); LYMPHOCYTES % (AUTO) 10 % (12-44); MEAN CORPUSCULAR HEMOGLOBIN 30 pg (25-34); MEAN CORPUSCULAR HGB CONC 32 g/dL (32-36); MEAN CORPUSCULAR VOLUME 92 fL (80-99); MEAN PLATELET VOLUME 10.5 fL (9.0-12.2); MONOCYTES # (AUTO) 0.3 10^3/uL (0.0-1.0); MONOCYTES % (AUTO) 7 % (0-12); NEUTROPHILS # (AUTO) 3.3 10^3/uL (1.8-7.8); NEUTROPHILS % (AUTO) 77 % (42-75); PLATELET COUNT 156 10^3/uL (130-400); WHITE BLOOD COUNT 4.3 10^3/uL (4.3-11.0)
[2021-07-28 09:53] LABS: ALBUMIN 3.9 GM/DL (3.2-4.5); BILIRUBIN,TOTAL 0.6 MG/DL (0.1-1.0); CALCIUM 8.7 MG/DL (8.5-10.1); CREATININE SERUM 0.78 MG/DL (0.60-1.30); POTASSIUM 3.9 MMOL/L (3.6-5.0); TOTAL PROTEIN 6.4 GM/DL (6.4-8.2)
== END 2021-08-26 | disposition home or self-care (01) ==
LOC: ONC 08:43
PROVIDERS: ATTEND Internal Medicine Hematology & Oncology
DX: Z51.11 Encounter for antineoplastic chemotherapy (principal); Z45.2 Encounter for adjustment and management of vascular access device; C83.18 Mantle cell lymphoma, lymph nodes of multiple sites; G62.9 Polyneuropathy, unspecified; K21.9 Gastro-esophageal reflux disease without esophagitis; I71.9 Aortic aneurysm of unspecified site, without rupture; M50.20 Other cervical disc displacement, unspecified cervical region; Z98.1 Arthrodesis status; Z87.891 Personal history of nicotine dependence
CPT/HCPCS: 80053; 85025; 96360; 96375; 96413; 96415; G0463; 36591

== ENCOUNTER 2021-09-29 08:29 | Outpatient (RCR) | payer MEDICARE, OTHER ==
[2021-09-29 08:55] LABS: BASOPHILS % (AUTO) 1 % (0-10); EOSINOPHILS # (AUTO) 0.1 10^3/uL (0.0-0.3); EOSINOPHILS % (AUTO) 4 % (0-10); HEMATOCRIT 40 % (40-54); HEMOGLOBIN 12.9 g/dL (13.3-17.7); LYMPHOCYTES # (AUTO) 0.3 10^3/uL (1.0-4.0); LYMPHOCYTES % (AUTO) 10 % (12-44); MEAN CORPUSCULAR HEMOGLOBIN 31 pg (25-34); MEAN CORPUSCULAR HGB CONC 33 g/dL (32-36); MEAN CORPUSCULAR VOLUME 94 fL (80-99); MEAN PLATELET VOLUME 10.3 fL (9.0-12.2); MONOCYTES # (AUTO) 0.2 10^3/uL (0.0-1.0); MONOCYTES % (AUTO) 6 % (0-12); NEUTROPHILS # (AUTO) 2.6 10^3/uL (1.8-7.8); NEUTROPHILS % (AUTO) 80 % (42-75); PLATELET COUNT 167 10^3/uL (130-400); WHITE BLOOD COUNT 3.3 10^3/uL (4.3-11.0)
[2021-09-29 09:16] LABS: ALBUMIN 3.9 GM/DL (3.2-4.5); BILIRUBIN,TOTAL 0.7 MG/DL (0.1-1.0); CREATININE SERUM 0.77 MG/DL (0.60-1.30); TOTAL PROTEIN 6.2 GM/DL (6.4-8.2)
== END 2021-10-27 | disposition home or self-care (01) ==
LOC: ONC 08:29
PROVIDERS: ATTEND Internal Medicine Hematology & Oncology
DX: Z51.11 Encounter for antineoplastic chemotherapy (principal); Z45.2 Encounter for adjustment and management of vascular access device; C83.18 Mantle cell lymphoma, lymph nodes of multiple sites; G62.9 Polyneuropathy, unspecified; K21.9 Gastro-esophageal reflux disease without esophagitis; I71.9 Aortic aneurysm of unspecified site, without rupture; M50.20 Other cervical disc displacement, unspecified cervical region; Z98.1 Arthrodesis status; Z87.891 Personal history of nicotine dependence
CPT/HCPCS: 80053; 83615; 85025; 96375; 96413; 96415; G0463; 36591

== ENCOUNTER → 2021-11-26 | Outpatient (CLI) | payer MEDICARE, OTHER ==
[~2021-11-26] MED LIST changes: -ACETAMINOPHEN 500 MG TAB (TYLENOL) PO SCH; +CATHETER FLUSH 10 ML SYR IV PRN; -CENTER ONLY IV SCH; -HEParin (CENTRAL IV FLUSH) 500 UNIT/5 ML SYR IV PRN; +HOLD METFORMIN - RECEIVED CONTRAST 20 ML VIAL IV SCH; +IOHEXOL 350 MG/ML 100 ML (OMNIPAQUE 350) VIAL IV ONE; +NS 100 ML (IVPB) BAG IV ONE; -NS IV 1000 ML (CANCER CTR) IV SCH; -NS IV SCH; -RITUXIMAB ABBS IV SCH; -diphenhydrAMINE 25 MG TAB (BENADRYL) PO SCH
--- NOTE | 2021-11-29 10:33 | Diagnostic Imaging Report ---
EXAMINATION: CT chest, abdomen and pelvis with intravenous contrast. TECHNIQUE: Multiple contiguous axial images were obtained through the chest, abdomen and pelvis after the uneventful administration of intravenous contrast. All CT scans use one or more of the following dose optimizing techniques: Automated exposure control, MA and/or KvP adjustment based on patient size and exam type or iterative reconstruction. HISTORY: Lymphoma. COMPARISON: 11/05/2020. FINDINGS: There is no edema or pneumonia. No pleural effusion. No pneumothorax. There are mild tree-in-bud nodules in the right lower lobe and bronchial wall thickening. Findings are likely related to mild aspiration event. There is no axillary or supraclavicular lymphadenopathy. A right upper paratracheal lymph node measures 13 mm in short axis, previously 9 mm. A subcarinal lymph node measures 11 mm, previously 6 mm. An anterior mediastinal nodule measures 12 mm, previously 10 mm. Heart size is normal. There are severe coronary artery calcifications. No pericardial effusion. There is an unchanged 4.4 cm calcified aneurysm of the aortic arch. The liver is normal without focal lesion. There is no biliary ductal dilation. Gallbladder is normal. Pancreas is normal. Spleen is normal. Adrenal glands are normal. The kidneys are normal. There is no hydronephrosis. Urinary bladder is normal. Bowel is normal in caliber without obstruction or inflammation. No free fluid or air. Retroperitoneal jeyson mass has increased in size with a thickness of 5.2 cm, previously 2.9 cm. The left pelvic sidewall jeyson mass measures 5.3 cm, previously 3.6 cm. Left inguinal jeyson mass measures 2.6 cm, previously 1.4 cm. Aorta is normal in caliber without aneurysm. There are no suspicious osseous lesions. IMPRESSION: 1. Increase in lymphadenopathy in the chest, abdomen, and pelvis consistent with progression of disease. Dictated by: Dictated on workstation # [id number]
== END ==
LOC: RAD 13:15
PROVIDERS: ATTEND Internal Medicine Hematology & Oncology
DX: C83.18 Mantle cell lymphoma, lymph nodes of multiple sites (principal)
CPT/HCPCS: 71260; 74177

== ENCOUNTER 2021-12-01 09:59 | Outpatient (RCR) | payer MEDICARE, OTHER ==
[~2021-12-01 09:59] MED LIST changes: +ACETAMINOPHEN 500 MG TAB (TYLENOL) PO SCH; -CATHETER FLUSH 10 ML SYR IV PRN; +CENTER ONLY IV SCH; +HEParin (CENTRAL IV FLUSH) 500 UNIT/5 ML SYR IV PRN; -HOLD METFORMIN - RECEIVED CONTRAST 20 ML VIAL IV SCH; -IOHEXOL 350 MG/ML 100 ML (OMNIPAQUE 350) VIAL IV ONE; -NS 100 ML (IVPB) BAG IV ONE; +NS IV 1000 ML (CANCER CTR) IV SCH; +NS IV SCH; +RITUXIMAB ABBS IV SCH; +diphenhydrAMINE 25 MG TAB (BENADRYL) PO SCH
[2021-12-01 10:30] LABS: BASOPHILS % (AUTO) 1 % (0-10); EOSINOPHILS # (AUTO) 0.2 10^3/uL (0.0-0.3); EOSINOPHILS % (AUTO) 4 % (0-10); HEMATOCRIT 39 % (40-54); HEMOGLOBIN 12.4 g/dL (13.3-17.7); LYMPHOCYTES # (AUTO) 0.5 10^3/uL (1.0-4.0); LYMPHOCYTES % (AUTO) 11 % (12-44); MEAN CORPUSCULAR HEMOGLOBIN 30 pg (25-34); MEAN CORPUSCULAR HGB CONC 32 g/dL (32-36); MEAN CORPUSCULAR VOLUME 95 fL (80-99); MONOCYTES # (AUTO) 0.4 10^3/uL (0.0-1.0); MONOCYTES % (AUTO) 8 % (0-12); NEUTROPHILS # (AUTO) 3.3 10^3/uL (1.8-7.8); NEUTROPHILS % (AUTO) 77 % (42-75); PLATELET COUNT 239 10^3/uL (130-400); WHITE BLOOD COUNT 4.3 10^3/uL (4.3-11.0)
[2021-12-01 10:53] LABS: ALBUMIN 3.7 GM/DL (3.2-4.5); BILIRUBIN,TOTAL 0.6 MG/DL (0.1-1.0); CALCIUM 9.1 MG/DL (8.5-10.1); CREATININE SERUM 0.76 MG/DL (0.60-1.30); POTASSIUM 4.3 MMOL/L (3.6-5.0); TOTAL PROTEIN 6.3 GM/DL (6.4-8.2)
== END 2021-12-27 | disposition home or self-care (01) ==
LOC: ONC 09:59
PROVIDERS: ATTEND Internal Medicine Hematology & Oncology
DX: Z51.11 Encounter for antineoplastic chemotherapy (principal); Z45.2 Encounter for adjustment and management of vascular access device; C83.18 Mantle cell lymphoma, lymph nodes of multiple sites; C85.10 Unspecified B-cell lymphoma, unspecified site; G62.9 Polyneuropathy, unspecified; K21.9 Gastro-esophageal reflux disease without esophagitis; I71.9 Aortic aneurysm of unspecified site, without rupture; M50.20 Other cervical disc displacement, unspecified cervical region; Z98.1 Arthrodesis status; Z87.891 Personal history of nicotine dependence
CPT/HCPCS: 80053; 83615; 85025; 96360; 96361; 96375; 96413; 96415; G0463; 36591

== ENCOUNTER → 2022-01-26 | Outpatient (RCR) | payer MEDICARE, OTHER ==
[2021-12-29 09:40] LABS: BASOPHILS % (AUTO) 1 % (0-10); EOSINOPHILS # (AUTO) 0.2 10^3/uL (0.0-0.3); EOSINOPHILS % (AUTO) 5 % (0-10); HEMATOCRIT 41 % (40-54); HEMOGLOBIN 12.9 g/dL (13.3-17.7); LYMPHOCYTES # (AUTO) 0.4 10^3/uL (1.0-4.0); LYMPHOCYTES % (AUTO) 13 % (12-44); MEAN CORPUSCULAR HEMOGLOBIN 31 pg (25-34); MEAN CORPUSCULAR HGB CONC 32 g/dL (32-36); MEAN CORPUSCULAR VOLUME 97 fL (80-99); MEAN PLATELET VOLUME 10.2 fL (9.0-12.2); MONOCYTES # (AUTO) 0.3 10^3/uL (0.0-1.0); MONOCYTES % (AUTO) 9 % (0-12); NEUTROPHILS # (AUTO) 2.4 10^3/uL (1.8-7.8); NEUTROPHILS % (AUTO) 73 % (42-75); PLATELET COUNT 153 10^3/uL (130-400); WHITE BLOOD COUNT 3.2 10^3/uL (4.3-11.0)
[2021-12-29 09:58] LABS: ALBUMIN 3.7 GM/DL (3.2-4.5); BILIRUBIN,TOTAL 0.4 MG/DL (0.1-1.0); CALCIUM 8.8 MG/DL (8.5-10.1); CREATININE SERUM 0.79 MG/DL (0.60-1.30)
[~2022-01-26] MED LIST changes: -ACETAMINOPHEN 500 MG TAB (TYLENOL) PO SCH; -CENTER ONLY IV SCH; -HEParin (CENTRAL IV FLUSH) 500 UNIT/5 ML SYR IV PRN; -NS IV 1000 ML (CANCER CTR) IV SCH; -NS IV SCH; -RITUXIMAB ABBS IV SCH; -diphenhydrAMINE 25 MG TAB (BENADRYL) PO SCH
[2022-01-26 09:55] LABS: BASOPHILS % (AUTO) 0 % (0-10); EOSINOPHILS # (AUTO) 0.2 10^3/uL (0.0-0.3); EOSINOPHILS % (AUTO) 4 % (0-10); HEMATOCRIT 39 % (40-54); HEMOGLOBIN 12.7 g/dL (13.3-17.7); LYMPHOCYTES # (AUTO) 0.5 10^3/uL (1.0-4.0); LYMPHOCYTES % (AUTO) 11 % (12-44); MEAN CORPUSCULAR HEMOGLOBIN 31 pg (25-34); MEAN CORPUSCULAR HGB CONC 32 g/dL (32-36); MEAN CORPUSCULAR VOLUME 95 fL (80-99); MEAN PLATELET VOLUME 10.4 fL (9.0-12.2); MONOCYTES # (AUTO) 0.4 10^3/uL (0.0-1.0); MONOCYTES % (AUTO) 11 % (0-12); NEUTROPHILS % (AUTO) 73 % (42-75); PLATELET COUNT 158 10^3/uL (130-400); WHITE BLOOD COUNT 4.1 10^3/uL (4.3-11.0)
[2022-01-26 10:32] LABS: ALBUMIN 3.8 GM/DL (3.2-4.5); BILIRUBIN,TOTAL 0.7 MG/DL (0.1-1.0); CALCIUM 8.6 MG/DL (8.5-10.1); CREATININE SERUM 0.78 MG/DL (0.60-1.30); POTASSIUM 3.9 MMOL/L (3.6-5.0); TOTAL PROTEIN 6.1 GM/DL (6.4-8.2)
== END | disposition home or self-care (01) ==
LOC: ONC 12-29 09:05
PROVIDERS: ATTEND Internal Medicine Hematology & Oncology
DX: C83.18 Mantle cell lymphoma, lymph nodes of multiple sites (principal); C85.10 Unspecified B-cell lymphoma, unspecified site; G62.9 Polyneuropathy, unspecified; K21.9 Gastro-esophageal reflux disease without esophagitis; I71.9 Aortic aneurysm of unspecified site, without rupture; M50.20 Other cervical disc displacement, unspecified cervical region; Z98.1 Arthrodesis status; Z87.891 Personal history of nicotine dependence
CPT/HCPCS: 80053; 83615; 85025; G0463; 36415; 36591; 99213

== ENCOUNTER → 2022-02-02 | Outpatient (CLI) | payer MEDICARE, OTHER ==
[~2022-02-02] MED LIST changes: +CATHETER FLUSH 10 ML SYR IV PRN; +HOLD METFORMIN - RECEIVED CONTRAST 20 ML VIAL IV SCH; +IOHEXOL 350 MG/ML 100 ML (OMNIPAQUE 350) VIAL IV ONE; +NS 100 ML (IVPB) BAG IV ONE
--- NOTE | 2022-02-02 11:20 | Diagnostic Imaging Report ---
EXAMINATION: CT chest, abdomen and pelvis with intravenous contrast. TECHNIQUE: Multiple contiguous axial images were obtained through the chest, abdomen and pelvis after the uneventful administration of intravenous contrast. All CT scans use one or more of the following dose optimizing techniques: automated exposure control, MA and/or KvP adjustment based on patient size and exam type or iterative reconstruction. HISTORY: History of lymphoma with new palpable abnormality in the groin. COMPARISON: 11/26/2021 FINDINGS: Thyroid: The visualized thyroid gland is normal. Mediastinum: Heart size is normal without significant pericardial effusion. Atherosclerosis of the aorta and coronary vessels with aneurysmal dilatation of the descending thoracic aorta measuring up to 4.0 cm. There are multiple enlarged soft tissue or lymph node conglomerates within the mediastinum. A passenger representative conglomerate measures 4.5 x 2.7 cm. These have increased in size from 11/26/2021. Lungs and airways: There are new sub-solid and reticulonodular opacities within the lungs greatest in the lung bases. This has progressed from 11/26/2021. No pleural effusion or pneumothorax. The airways are normal. Solid organs: The liver is normal without focal lesion. The gallbladder is normal. There is no biliary ductal dilation. Pancreas is normal. Spleen is normal. Adrenal glands are normal. The kidneys are normal without hydronephrosis. Bowel: The stomach and small bowel are normal without obstruction. A moderate amount of stool is present within the colon. The appendix is normal. Peritoneum: There is no intraperitoneal free fluid or free air. There is confluence soft tissue or lymphadenopathy within the retroperitoneum which encases the vessels but does not appear to cause obstruction. This is similar appearance but increased in size from 11/26/2021. Largest conglomerate within the retroperitoneum measures approximately 11.1 x 5.5 cm on today's exam. There is redemonstrated but again increased size of a left pelvic/iliac chain jeyson conglomerate measuring 10.6 x 6.8 cm. Vasculature: Calcification of the aorta without aneurysm. Musculoskeletal: Degenerative changes of the spine without suspicious osseous lesion or compression fracture. There are multiple enlarged bilateral inguinal lymph nodes and inguinal jeyson conglomerates measuring up to 6.2 x 3.1 cm on the left. These have increased from prior exam. Pelvis: The prostate gland is normal. The urinary bladder is normal. IMPRESSION: 1. Progressive lymphadenopathy within the chest, abdomen and pelvis compatible with progression of lymphoma. 2. Specifically, the bilateral inguinal regions demonstrate increasing lymphadenopathy compared to prior exam which likely accounts for the patient's palpable abnormalities. 3. Increasing sub-solid reticulonodular opacities within the lungs compared to prior exam. This could be seen with superimposed pneumonia although lymphoma involvement of the lungs could have a similar appearance. Dictated by: Dictated on workstation # [id number]
== END ==
LOC: RAD 09:42
PROVIDERS: ATTEND Internal Medicine Hematology & Oncology
DX: C83.18 Mantle cell lymphoma, lymph nodes of multiple sites (principal)
CPT/HCPCS: 71260; 74177

== ENCOUNTER 2022-02-14 13:14 | Outpatient (RCR) | payer MEDICARE, OTHER ==
[2022-02-02 14:52] LABS: BASOPHILS % (AUTO) 0 % (0-10); EOSINOPHILS % (AUTO) 0 % (0-10); MEAN CORPUSCULAR HEMOGLOBIN 30 pg (25-34)
[2022-02-02 14:54] LABS: HEMATOCRIT 35 % (40-54); HEMOGLOBIN 11.8 g/dL (13.3-17.7); LYMPHOCYTES # (AUTO) 0.5 10^3/uL (1.0-4.0); LYMPHOCYTES % (AUTO) 12 % (12-44); MEAN CORPUSCULAR HGB CONC 34 g/dL (32-36); MEAN CORPUSCULAR VOLUME 91 fL (80-99); MEAN PLATELET VOLUME 11.4 fL (9.0-12.2); MONOCYTES # (AUTO) 0.1 10^3/uL (0.0-1.0); MONOCYTES % (AUTO) 4 % (0-12); NEUTROPHILS # (AUTO) 3.3 10^3/uL (1.8-7.8); NEUTROPHILS % (AUTO) 84 % (42-75); PLATELET COUNT 103 10^3/uL (130-400); WHITE BLOOD COUNT 3.9 10^3/uL (4.3-11.0)
[2022-02-02 15:11] LABS: ALBUMIN 3.8 GM/DL (3.2-4.5); BILIRUBIN,TOTAL 0.4 MG/DL (0.1-1.0); CALCIUM 8.4 MG/DL (8.5-10.1); POTASSIUM 3.9 MMOL/L (3.6-5.0); TOTAL PROTEIN 6.5 GM/DL (6.4-8.2)
[2022-02-02 22:37] LABS: HEPATITIS C ANTIBODY C Non-Reactive (Non-Reactive)
[~2022-02-14 13:14] MED LIST changes: -CATHETER FLUSH 10 ML SYR IV PRN; -HOLD METFORMIN - RECEIVED CONTRAST 20 ML VIAL IV SCH; -IOHEXOL 350 MG/ML 100 ML (OMNIPAQUE 350) VIAL IV ONE; -NS 100 ML (IVPB) BAG IV ONE
[2022-02-14 13:52] LABS: BASOPHILS % (AUTO) 0 % (0-10); EOSINOPHILS # (AUTO) 0.1 10^3/uL (0.0-0.3); EOSINOPHILS % (AUTO) 2 % (0-10); HEMATOCRIT 42 % (40-54); HEMOGLOBIN 13.5 g/dL (13.3-17.7); LYMPHOCYTES # (AUTO) 0.5 10^3/uL (1.0-4.0); LYMPHOCYTES % (AUTO) 10 % (12-44); MEAN CORPUSCULAR HEMOGLOBIN 29 pg (25-34); MEAN CORPUSCULAR HGB CONC 32 g/dL (32-36); MEAN CORPUSCULAR VOLUME 92 fL (80-99); MEAN PLATELET VOLUME 9.5 fL (9.0-12.2); MONOCYTES # (AUTO) 0.3 10^3/uL (0.0-1.0); MONOCYTES % (AUTO) 6 % (0-12); NEUTROPHILS # (AUTO) 4.2 10^3/uL (1.8-7.8); NEUTROPHILS % (AUTO) 82 % (42-75); PLATELET COUNT 342 10^3/uL (130-400); WHITE BLOOD COUNT 5.1 10^3/uL (4.3-11.0)
[2022-02-14 14:19] LABS: ALBUMIN 3.9 GM/DL (3.2-4.5); BILIRUBIN,TOTAL 0.7 MG/DL (0.1-1.0); CALCIUM 9.5 MG/DL (8.5-10.1); CREATININE SERUM 0.84 MG/DL (0.60-1.30); POTASSIUM 4.6 MMOL/L (3.6-5.0); TOTAL PROTEIN 6.8 GM/DL (6.4-8.2)
[2022-02-14] MEDS ORDERED: methylPREDNISolone 125 MG (Solu-MEDROL) VIAL ONE (14:25)
== END 2022-02-26 | disposition home or self-care (01) ==
LOC: ONC 13:14
PROVIDERS: ATTEND Internal Medicine Hematology & Oncology
DX: C83.18 Mantle cell lymphoma, lymph nodes of multiple sites (principal); C85.10 Unspecified B-cell lymphoma, unspecified site; G62.9 Polyneuropathy, unspecified; K21.9 Gastro-esophageal reflux disease without esophagitis; I71.9 Aortic aneurysm of unspecified site, without rupture; M50.20 Other cervical disc displacement, unspecified cervical region; Z98.1 Arthrodesis status; Z87.891 Personal history of nicotine dependence
CPT/HCPCS: 80053; 80074; 83615; 85025; G0463; 36415; 99213

== ENCOUNTER 2022-03-21 09:24 | Outpatient (RCR) | payer MEDICARE, OTHER ==
[2022-03-07 11:29] LABS: BASOPHILS % (AUTO) 1 % (0-10); EOSINOPHILS # (AUTO) 0.5 10^3/uL (0.0-0.3); EOSINOPHILS % (AUTO) 10 % (0-10); HEMATOCRIT 41 % (40-54); HEMOGLOBIN 12.6 g/dL (13.3-17.7); LYMPHOCYTES # (AUTO) 0.8 10^3/uL (1.0-4.0); LYMPHOCYTES % (AUTO) 16 % (12-44); MEAN CORPUSCULAR HEMOGLOBIN 29 pg (25-34); MEAN CORPUSCULAR HGB CONC 31 g/dL (32-36); MEAN CORPUSCULAR VOLUME 94 fL (80-99); MEAN PLATELET VOLUME 10.1 fL (9.0-12.2); MONOCYTES # (AUTO) 0.7 10^3/uL (0.0-1.0); MONOCYTES % (AUTO) 16 % (0-12); NEUTROPHILS # (AUTO) 2.7 10^3/uL (1.8-7.8); NEUTROPHILS % (AUTO) 58 % (42-75); PLATELET COUNT 165 10^3/uL (130-400); WHITE BLOOD COUNT 4.7 10^3/uL (4.3-11.0)
[2022-03-07 11:59] LABS: ALBUMIN 3.8 GM/DL (3.2-4.5); BILIRUBIN,TOTAL 0.8 MG/DL (0.1-1.0); CREATININE SERUM 0.81 MG/DL (0.60-1.30); POTASSIUM 4.3 MMOL/L (3.6-5.0); TOTAL PROTEIN 6.1 GM/DL (6.4-8.2)
[2022-03-21 09:52] LABS: BASOPHILS # (AUTO) 0.1 10^3/uL (0.0-0.1); BASOPHILS % (AUTO) 1 % (0-10); EOSINOPHILS # (AUTO) 0.4 10^3/uL (0.0-0.3); EOSINOPHILS % (AUTO) 4 % (0-10); HEMATOCRIT 40 % (40-54); HEMOGLOBIN 12.3 g/dL (13.3-17.7); LYMPHOCYTES % (AUTO) 24 % (12-44); MEAN CORPUSCULAR HEMOGLOBIN 29 pg (25-34); MEAN CORPUSCULAR HGB CONC 31 g/dL (32-36); MEAN CORPUSCULAR VOLUME 95 fL (80-99); MEAN PLATELET VOLUME 10.5 fL (9.0-12.2); MONOCYTES # (AUTO) 0.7 10^3/uL (0.0-1.0); MONOCYTES % (AUTO) 8 % (0-12); NEUTROPHILS # (AUTO) 5.4 10^3/uL (1.8-7.8); NEUTROPHILS % (AUTO) 63 % (42-75); PLATELET COUNT 176 10^3/uL (130-400); WHITE BLOOD COUNT 8.6 10^3/uL (4.3-11.0)
[2022-03-21 10:17] LABS: ALBUMIN 3.9 GM/DL (3.2-4.5); BILIRUBIN,TOTAL 0.4 MG/DL (0.1-1.0); CALCIUM 9.6 MG/DL (8.5-10.1); CREATININE SERUM 0.72 MG/DL (0.60-1.30); POTASSIUM 4.3 MMOL/L (3.6-5.0); TOTAL PROTEIN 6.6 GM/DL (6.4-8.2)
== END 2022-03-29 | disposition home or self-care (01) ==
LOC: ONC 09:24
PROVIDERS: ATTEND Internal Medicine Hematology & Oncology
DX: C83.18 Mantle cell lymphoma, lymph nodes of multiple sites (principal); G62.9 Polyneuropathy, unspecified; K21.9 Gastro-esophageal reflux disease without esophagitis; I71.9 Aortic aneurysm of unspecified site, without rupture; M50.20 Other cervical disc displacement, unspecified cervical region; Z87.891 Personal history of nicotine dependence; Z98.890 Other specified postprocedural states
CPT/HCPCS: 80053; 83615; 85025; G0463; 36415; 99213

== ENCOUNTER 2022-04-18 11:18 | Outpatient (RCR) | payer MEDICARE, OTHER ==
[2022-04-18 11:24] LABS: BASOPHILS % (AUTO) 0 % (0-10); EOSINOPHILS # (AUTO) 0.1 10^3/uL (0.0-0.3); EOSINOPHILS % (AUTO) 1 % (0-10); HEMATOCRIT 44 % (40-54); HEMOGLOBIN 13.9 g/dL (13.3-17.7); LYMPHOCYTES # (AUTO) 3.6 10^3/uL (1.0-4.0); LYMPHOCYTES % (AUTO) 41 % (12-44); MEAN CORPUSCULAR HEMOGLOBIN 29 pg (25-34); MEAN CORPUSCULAR HGB CONC 32 g/dL (32-36); MEAN CORPUSCULAR VOLUME 92 fL (80-99); MEAN PLATELET VOLUME 10.6 fL (9.0-12.2); MONOCYTES # (AUTO) 0.7 10^3/uL (0.0-1.0); MONOCYTES % (AUTO) 8 % (0-12); NEUTROPHILS # (AUTO) 4.3 10^3/uL (1.8-7.8); NEUTROPHILS % (AUTO) 50 % (42-75); PLATELET COUNT 154 10^3/uL (130-400); WHITE BLOOD COUNT 8.8 10^3/uL (4.3-11.0)
[2022-04-18 11:51] LABS: BILIRUBIN,TOTAL 0.4 MG/DL (0.1-1.0); CALCIUM 9.2 MG/DL (8.5-10.1); CREATININE SERUM 0.77 MG/DL (0.60-1.30); POTASSIUM 3.8 MMOL/L (3.6-5.0); TOTAL PROTEIN 6.7 GM/DL (6.4-8.2)
== END 2022-04-26 | disposition home or self-care (01) ==
LOC: ONC 11:18
PROVIDERS: ATTEND Internal Medicine Hematology & Oncology
DX: C83.18 Mantle cell lymphoma, lymph nodes of multiple sites (principal); G62.9 Polyneuropathy, unspecified; K21.9 Gastro-esophageal reflux disease without esophagitis; I71.9 Aortic aneurysm of unspecified site, without rupture; M50.20 Other cervical disc displacement, unspecified cervical region; Z87.891 Personal history of nicotine dependence; Z98.890 Other specified postprocedural states; Z98.1 Arthrodesis status
CPT/HCPCS: 36415; 80053; 83615; 85025

== ENCOUNTER → 2022-05-10 | Outpatient (CLI) | payer MEDICARE, OTHER ==
[~2022-05-10] MED LIST changes: +HOLD METFORMIN - RECEIVED CONTRAST 20 ML VIAL IV SCH; +IOHEXOL 350 MG/ML 100 ML (OMNIPAQUE 350) VIAL IV ONE; +NS 100 ML (IVPB) BAG IV ONE
--- NOTE | 2022-05-10 09:22 | Diagnostic Imaging Report ---
EXAMINATION: CT chest, abdomen, and pelvis with intravenous contrast. TECHNIQUE: Multiple contiguous axial images were obtained through the chest, abdomen, and pelvis after the uneventful administration of intravenous contrast. All CT scans use one or more of the following dose optimizing techniques: automated exposure control, MA and/or KvP adjustment based on patient size and exam type or iterative reconstruction. HISTORY: Lymphoma. COMPARISON: 02/02/2022. FINDINGS: There is no edema or pneumonia. No pleural effusion. No pneumothorax. No suspicious nodules. A 5 mm right lower lobe nodule is unchanged. Previously seen areas of nodularity have resolved. Left axillary lymphadenopathy has improved with nodes now measuring up to 1.2 x 1.8 cm, previously 1.5 x 3.7 cm. The right upper paratracheal lymphadenopathy has resolved with the largest node now measuring 0.6 cm, previously 4.5 x 2.7 cm. The anterior mediastinal mass seen on the prior exam has resolved. A right-sided port catheter is present. There is unchanged focal dilation and calcification of the aorta at the isthmus measuring up to 4.6 cm, favored to represent sequela of prior trauma and unchanged. Heart size is normal. There are severe coronary artery calcifications. No pericardial effusion. Aorta is normal in caliber. The liver is normal without focal lesion. There is no biliary ductal dilation. Gallbladder is normal. Pancreas is normal. Spleen is normal. Adrenal glands are normal. Simple cyst is seen in the right kidney. No suspicious renal lesion. There is no hydronephrosis. Urinary bladder is normal. Bowel is normal in caliber without obstruction or inflammation. The appendix is normal. No free fluid or air. The retroperitoneal soft tissue mass has significantly decreased in size measuring 2.5 cm in thickness, previously 5.6 cm in thickness. There has also been improvement in the left pelvic sidewall soft tissue mass measuring 2.3 cm in thickness, previously 7.7 cm. The left groin lymphadenopathy has also improved with nodes measuring 3.3 x 1.6 cm, previously 5.9 x 3.2 cm. Aorta is heavily calcified without aneurysm. There are no suspicious osseus lesions. IMPRESSION: 1. Significant decrease in size but persistent enlargement of lymph nodes in the chest, abdomen, and pelvis. 2. 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 Dictated by: Dictated on workstation # [id number]
== END ==
LOC: RAD 08:24
PROVIDERS: ATTEND Internal Medicine Hematology & Oncology
DX: C83.18 Mantle cell lymphoma, lymph nodes of multiple sites (principal); I71.22 Aneurysm of the aortic arch, without rupture
CPT/HCPCS: 71260; 74177

== ENCOUNTER 2022-05-16 09:46 | Outpatient (RCR) | payer MEDICARE, OTHER ==
[2022-05-10 08:43] LABS: BILIRUBIN,TOTAL 0.4 MG/DL (0.1-1.0); CALCIUM 9.3 MG/DL (8.5-10.1); CREATININE SERUM 0.75 MG/DL (0.60-1.30); POTASSIUM 4.3 MMOL/L (3.6-5.0); TOTAL PROTEIN 6.2 GM/DL (6.4-8.2)
[~2022-05-16 09:46] MED LIST changes: -HOLD METFORMIN - RECEIVED CONTRAST 20 ML VIAL IV SCH; -IOHEXOL 350 MG/ML 100 ML (OMNIPAQUE 350) VIAL IV ONE; -NS 100 ML (IVPB) BAG IV ONE
[2022-05-16 10:02] LABS: BASOPHILS % (AUTO) 0 % (0-10); EOSINOPHILS # (AUTO) 0.2 10^3/uL (0.0-0.3); EOSINOPHILS % (AUTO) 1 % (0-10); HEMATOCRIT 43 % (40-54); HEMOGLOBIN 13.4 g/dL (13.3-17.7); LYMPHOCYTES # (AUTO) 2.4 10^3/uL (1.0-4.0); LYMPHOCYTES % (AUTO) 21 % (12-44); MEAN CORPUSCULAR HEMOGLOBIN 30 pg (25-34); MEAN CORPUSCULAR HGB CONC 32 g/dL (32-36); MEAN CORPUSCULAR VOLUME 95 fL (80-99); MONOCYTES # (AUTO) 1.2 10^3/uL (0.0-1.0); MONOCYTES % (AUTO) 10 % (0-12); NEUTROPHILS # (AUTO) 7.5 10^3/uL (1.8-7.8); NEUTROPHILS % (AUTO) 66 % (42-75); PLATELET COUNT 162 10^3/uL (130-400); WHITE BLOOD COUNT 11.3 10^3/uL (4.3-11.0)
[2022-05-16 10:18] LABS: ALBUMIN 3.9 GM/DL (3.2-4.5); ALKALINE PHOSPHATASE 62 U/L (40-136); BILIRUBIN,TOTAL 0.4 MG/DL (0.1-1.0); BUN/CREATININE RATIO 35; CALCIUM 9.1 MG/DL (8.5-10.1); CARBON DIOXIDE 29 MMOL/L (21-32); CHLORIDE 103 MMOL/L (98-107); CREATININE SERUM 0.78 MG/DL (0.60-1.30); GFR ESTIMATED 97; GLUCOSE 102 MG/DL (70-105); POTASSIUM 4.3 MMOL/L (3.6-5.0); SODIUM 141 MMOL/L (135-145); TOTAL PROTEIN 6.3 GM/DL (6.4-8.2)
[2022-05-16 11:14] LABS: ALANINE AMINOTRANSFERASE < 30 U/L (0-55)
== END 2022-05-27 | disposition home or self-care (01) ==
LOC: ONC 09:46
PROVIDERS: ATTEND Internal Medicine Hematology & Oncology
DX: C83.18 Mantle cell lymphoma, lymph nodes of multiple sites (principal); G62.9 Polyneuropathy, unspecified; K21.9 Gastro-esophageal reflux disease without esophagitis; I71.9 Aortic aneurysm of unspecified site, without rupture; M50.20 Other cervical disc displacement, unspecified cervical region; Z87.891 Personal history of nicotine dependence; Z98.890 Other specified postprocedural states; Z98.1 Arthrodesis status
CPT/HCPCS: 36415; 80053; 85025

== ENCOUNTER 2022-06-13 13:59 | Outpatient (RCR) | payer MEDICARE, OTHER ==
[2022-06-13 14:17] LABS: BASOPHILS % (AUTO) 0 % (0-10); EOSINOPHILS # (AUTO) 0.1 10^3/uL (0.0-0.3); EOSINOPHILS % (AUTO) 1 % (0-10); HEMATOCRIT 42 % (40-54); HEMOGLOBIN 13.5 g/dL (13.3-17.7); LYMPHOCYTES # (AUTO) 2.5 10^3/uL (1.0-4.0); LYMPHOCYTES % (AUTO) 27 % (12-44); MEAN CORPUSCULAR HEMOGLOBIN 30 pg (25-34); MEAN CORPUSCULAR HGB CONC 33 g/dL (32-36); MEAN CORPUSCULAR VOLUME 93 fL (80-99); MEAN PLATELET VOLUME 10.9 fL (9.0-12.2); MONOCYTES # (AUTO) 0.8 10^3/uL (0.0-1.0); MONOCYTES % (AUTO) 8 % (0-12); NEUTROPHILS # (AUTO) 5.8 10^3/uL (1.8-7.8); NEUTROPHILS % (AUTO) 63 % (42-75); PLATELET COUNT 152 10^3/uL (130-400); WHITE BLOOD COUNT 9.2 10^3/uL (4.3-11.0)
[2022-06-13 14:30] LABS: ALBUMIN 4.1 GM/DL (3.2-4.5); POTASSIUM 3.8 MMOL/L (3.6-5.0)
[2022-06-13 14:31] LABS: CALCIUM 8.8 MG/DL (8.5-10.1)
[2022-06-13 14:32] LABS: TOTAL PROTEIN 6.6 GM/DL (6.4-8.2)
[2022-06-13 14:34] LABS: BILIRUBIN,TOTAL 0.4 MG/DL (0.1-1.0)
[2022-06-13 14:36] LABS: CREATININE SERUM 0.83 MG/DL (0.60-1.30)
== END 2022-06-26 | disposition home or self-care (01) ==
LOC: ONC 13:59
PROVIDERS: ATTEND Internal Medicine Hematology & Oncology
DX: C83.18 Mantle cell lymphoma, lymph nodes of multiple sites (principal); G62.9 Polyneuropathy, unspecified; K21.9 Gastro-esophageal reflux disease without esophagitis; I71.9 Aortic aneurysm of unspecified site, without rupture; M50.20 Other cervical disc displacement, unspecified cervical region; Z87.891 Personal history of nicotine dependence; Z98.890 Other specified postprocedural states; Z98.1 Arthrodesis status
CPT/HCPCS: 36415; 80053; 85025

== ENCOUNTER 2022-07-11 09:03 | Outpatient (RCR) | payer MEDICARE, OTHER ==
[2022-07-11 09:20] LABS: BASOPHILS % (AUTO) 1 % (0-10); EOSINOPHILS # (AUTO) 0.2 10^3/uL (0.0-0.3); EOSINOPHILS % (AUTO) 3 % (0-10); HEMATOCRIT 41 % (40-54); HEMOGLOBIN 12.8 g/dL (13.3-17.7); LYMPHOCYTES # (AUTO) 1.6 10^3/uL (1.0-4.0); LYMPHOCYTES % (AUTO) 26 % (12-44); MEAN CORPUSCULAR HEMOGLOBIN 30 pg (25-34); MEAN CORPUSCULAR HGB CONC 32 g/dL (32-36); MEAN CORPUSCULAR VOLUME 96 fL (80-99); MEAN PLATELET VOLUME 11.2 fL (9.0-12.2); MONOCYTES # (AUTO) 0.7 10^3/uL (0.0-1.0); MONOCYTES % (AUTO) 10 % (0-12); NEUTROPHILS # (AUTO) 3.7 10^3/uL (1.8-7.8); NEUTROPHILS % (AUTO) 60 % (42-75); PLATELET COUNT 147 10^3/uL (130-400); WHITE BLOOD COUNT 6.2 10^3/uL (4.3-11.0)
[2022-07-11 09:41] LABS: BILIRUBIN,TOTAL 0.5 MG/DL (0.1-1.0); CREATININE SERUM 0.85 MG/DL (0.60-1.30); POTASSIUM 3.5 MMOL/L (3.6-5.0); TOTAL PROTEIN 6.3 GM/DL (6.4-8.2)
== END 2022-07-27 | disposition home or self-care (01) ==
LOC: ONC 09:03
PROVIDERS: ATTEND Internal Medicine Hematology & Oncology
DX: C83.18 Mantle cell lymphoma, lymph nodes of multiple sites (principal); C85.10 Unspecified B-cell lymphoma, unspecified site; G62.9 Polyneuropathy, unspecified; K21.9 Gastro-esophageal reflux disease without esophagitis; J01.90 Acute sinusitis, unspecified; I71.9 Aortic aneurysm of unspecified site, without rupture; Z87.891 Personal history of nicotine dependence; Z98.890 Other specified postprocedural states; Z98.1 Arthrodesis status
CPT/HCPCS: 36415; 80053; 85025

== ENCOUNTER 2022-08-15 10:11 | Outpatient (RCR) | payer MEDICARE ==
[2022-08-15 10:52] LABS: BASOPHILS % (AUTO) 0 % (0-10); EOSINOPHILS # (AUTO) 0.1 10^3/uL (0.0-0.3); EOSINOPHILS % (AUTO) 1 % (0-10); HEMATOCRIT 40 % (40-54); HEMOGLOBIN 12.7 g/dL (13.3-17.7); LYMPHOCYTES # (AUTO) 1.8 10^3/uL (1.0-4.0); LYMPHOCYTES % (AUTO) 23 % (12-44); MEAN CORPUSCULAR HEMOGLOBIN 30 pg (25-34); MEAN CORPUSCULAR HGB CONC 32 g/dL (32-36); MEAN CORPUSCULAR VOLUME 93 fL (80-99); MEAN PLATELET VOLUME 11.1 fL (9.0-12.2); MONOCYTES # (AUTO) 0.6 10^3/uL (0.0-1.0); MONOCYTES % (AUTO) 8 % (0-12); NEUTROPHILS # (AUTO) 5.2 10^3/uL (1.8-7.8); NEUTROPHILS % (AUTO) 68 % (42-75); PLATELET COUNT 154 10^3/uL (130-400); WHITE BLOOD COUNT 7.7 10^3/uL (4.3-11.0)
[2022-08-15 11:15] LABS: BILIRUBIN,TOTAL 0.4 MG/DL (0.1-1.0); CALCIUM 8.8 MG/DL (8.5-10.1); CREATININE SERUM 0.82 MG/DL (0.60-1.30); POTASSIUM 3.9 MMOL/L (3.6-5.0); TOTAL PROTEIN 6.3 GM/DL (6.4-8.2)
== END 2022-08-26 | disposition home or self-care (01) ==
LOC: ONC 10:11
PROVIDERS: ATTEND Internal Medicine Hematology & Oncology
DX: C83.18 Mantle cell lymphoma, lymph nodes of multiple sites (principal); C85.10 Unspecified B-cell lymphoma, unspecified site; J01.90 Acute sinusitis, unspecified; G62.9 Polyneuropathy, unspecified; K21.9 Gastro-esophageal reflux disease without esophagitis; I71.9 Aortic aneurysm of unspecified site, without rupture; Z87.891 Personal history of nicotine dependence; Z98.890 Other specified postprocedural states; Z98.1 Arthrodesis status
CPT/HCPCS: 36415; 80053; 85025

== ENCOUNTER 2022-09-12 09:55 | Outpatient (RCR) | payer MEDICARE ==
[2022-09-12 10:41] LABS: BASOPHILS % (AUTO) 0 % (0-10); EOSINOPHILS # (AUTO) 0.2 10^3/uL (0.0-0.3); EOSINOPHILS % (AUTO) 2 % (0-10); HEMATOCRIT 41 % (40-54); HEMOGLOBIN 12.9 g/dL (13.3-17.7); LYMPHOCYTES # (AUTO) 1.4 10^3/uL (1.0-4.0); LYMPHOCYTES % (AUTO) 23 % (12-44); MEAN CORPUSCULAR HEMOGLOBIN 30 pg (25-34); MEAN CORPUSCULAR HGB CONC 32 g/dL (32-36); MEAN CORPUSCULAR VOLUME 95 fL (80-99); MEAN PLATELET VOLUME 10.8 fL (9.0-12.2); MONOCYTES # (AUTO) 0.6 10^3/uL (0.0-1.0); MONOCYTES % (AUTO) 10 % (0-12); NEUTROPHILS % (AUTO) 65 % (42-75); PLATELET COUNT 148 10^3/uL (130-400); WHITE BLOOD COUNT 6.2 10^3/uL (4.3-11.0)
[2022-09-12 11:09] LABS: ALBUMIN 3.9 GM/DL (3.2-4.5); BILIRUBIN,TOTAL 0.4 MG/DL (0.1-1.0); CALCIUM 8.9 MG/DL (8.5-10.1); CREATININE SERUM 0.79 MG/DL (0.60-1.30); POTASSIUM 3.9 MMOL/L (3.6-5.0); TOTAL PROTEIN 6.3 GM/DL (6.4-8.2)
== END 2022-09-26 | disposition home or self-care (01) ==
LOC: ONC 09:55
PROVIDERS: ATTEND Internal Medicine Hematology & Oncology
DX: C83.18 Mantle cell lymphoma, lymph nodes of multiple sites (principal); C85.10 Unspecified B-cell lymphoma, unspecified site; J01.90 Acute sinusitis, unspecified; G62.9 Polyneuropathy, unspecified; K21.9 Gastro-esophageal reflux disease without esophagitis; I71.9 Aortic aneurysm of unspecified site, without rupture; Z87.891 Personal history of nicotine dependence; Z98.890 Other specified postprocedural states; Z98.1 Arthrodesis status
CPT/HCPCS: 36415; 80053; 85025

== ENCOUNTER 2022-10-10 10:01 | Outpatient (RCR) | payer MEDICARE ==
[2022-10-10 10:18] LABS: BASOPHILS % (AUTO) 1 % (0-10); EOSINOPHILS # (AUTO) 0.1 10^3/uL (0.0-0.3); EOSINOPHILS % (AUTO) 2 % (0-10); HEMATOCRIT 40 % (40-54); HEMOGLOBIN 12.5 g/dL (13.3-17.7); LYMPHOCYTES # (AUTO) 1.7 10^3/uL (1.0-4.0); LYMPHOCYTES % (AUTO) 25 % (12-44); MEAN CORPUSCULAR HEMOGLOBIN 30 pg (25-34); MEAN CORPUSCULAR HGB CONC 31 g/dL (32-36); MEAN CORPUSCULAR VOLUME 96 fL (80-99); MEAN PLATELET VOLUME 10.4 fL (9.0-12.2); MONOCYTES # (AUTO) 0.5 10^3/uL (0.0-1.0); MONOCYTES % (AUTO) 8 % (0-12); NEUTROPHILS # (AUTO) 4.1 10^3/uL (1.8-7.8); NEUTROPHILS % (AUTO) 64 % (42-75); PLATELET COUNT 158 10^3/uL (130-400); WHITE BLOOD COUNT 6.5 10^3/uL (4.3-11.0)
[2022-10-10 10:37] LABS: ALBUMIN 3.9 GM/DL (3.2-4.5); BILIRUBIN,TOTAL 0.5 MG/DL (0.1-1.0); CALCIUM 8.6 MG/DL (8.5-10.1); CREATININE SERUM 0.89 MG/DL (0.60-1.30); TOTAL PROTEIN 6.1 GM/DL (6.4-8.2)
== END 2022-10-27 | disposition home or self-care (01) ==
LOC: ONC 10:01
PROVIDERS: ATTEND Internal Medicine Hematology & Oncology
DX: C83.18 Mantle cell lymphoma, lymph nodes of multiple sites (principal); C85.10 Unspecified B-cell lymphoma, unspecified site; J01.90 Acute sinusitis, unspecified; G62.9 Polyneuropathy, unspecified; K21.9 Gastro-esophageal reflux disease without esophagitis; I71.9 Aortic aneurysm of unspecified site, without rupture; Z87.891 Personal history of nicotine dependence; Z98.890 Other specified postprocedural states; Z98.1 Arthrodesis status
CPT/HCPCS: 80053; 85025; G0463; 36415; 99214

== ENCOUNTER → 2022-10-17 | Outpatient (CLI) | payer MEDICARE ==
[~2022-10-17] MED LIST changes: +IOHEXOL 350 MG/ML 100 ML (OMNIPAQUE 350) VIAL IV ONE; +NS 100 ML (IVPB) BAG IV ONE
--- NOTE | 2022-10-17 11:05 | Diagnostic Imaging Report ---
PROCEDURE: CT chest, abdomen, and pelvis with contrast. TECHNIQUE: Multiple contiguous axial images were obtained through the chest, abdomen, and pelvis after the administration of intravenous contrast. Auto Exposure Controls were utilized during the CT exam to meet ALARA standards for radiation dose reduction. INDICATION: Mantle cell lymphoma, follow-up. Correlation is made with prior CT from 05/10/2022. CT CHEST: A right chest wall port has tip in the SVC. Right axilla is unremarkable. The left axillary lymph nodes appear decreased in size. Left axillary node measures approximately 0.8 cm compared with 1.2 cm on prior. No mediastinal or hilar lymphadenopathy is detected. No pericardial or pleural fluid is identified. Calcified aneurysmal dilatation of aortic arch near the isthmus is again noted and similar to prior exam. Right lower lobe subpleural nodule appears stable. No new pulmonary masses are identified. CT abdomen and pelvis: The liver and gallbladder are unremarkable. There is no biliary ductal dilatation. The pancreas and spleen are unremarkable. No adrenal mass is detected. Kidneys appear stable. Aorta is heavily calcified but nonaneurysmal. Soft tissue fullness in the central retroperitoneum appears significantly improved when compared with prior exam. The rind of soft tissue encasing aorta and IVC is markedly diminished. In addition, abnormal soft tissue along the left pelvic sidewall and left groin appears significantly improved. The small and large bowel loops are normal caliber. There is no ascites. Bladder is decompressed. Prostate is unremarkable. There are bilateral fat-containing inguinal hernias. IMPRESSION: 1. Improvement in the thoracic, abdominal and pelvic lymphadenopathy when compared with prior exam from 05/10/2022. Right lower lobe pulmonary nodule is stable as well. 2. Bilateral fat-containing inguinal hernias. Dictated by: Dictated on workstation # [id number]
== END ==
LOC: RAD 10:15
PROVIDERS: ATTEND Internal Medicine Hematology & Oncology
DX: C83.18 Mantle cell lymphoma, lymph nodes of multiple sites (principal); R91.1 Solitary pulmonary nodule; K40.20 Bilateral inguinal hernia, without obstruction or gangrene, not specified as recurrent
CPT/HCPCS: 71260; 74177

== ENCOUNTER 2022-12-12 09:48 | Outpatient (RCR) | payer MEDICARE ==
[~2022-12-12 09:48] MED LIST changes: -IOHEXOL 350 MG/ML 100 ML (OMNIPAQUE 350) VIAL IV ONE; -NS 100 ML (IVPB) BAG IV ONE
[2022-12-12 10:21] LABS: BASOPHILS % (AUTO) 0 % (0-10); EOSINOPHILS # (AUTO) 0.1 10^3/uL (0.0-0.3); EOSINOPHILS % (AUTO) 1 % (0-10); HEMATOCRIT 39 % (40-54); HEMOGLOBIN 12.1 g/dL (13.3-17.7); LYMPHOCYTES # (AUTO) 1.1 10^3/uL (1.0-4.0); LYMPHOCYTES % (AUTO) 14 % (12-44); MEAN CORPUSCULAR HEMOGLOBIN 30 pg (25-34); MEAN CORPUSCULAR HGB CONC 31 g/dL (32-36); MEAN CORPUSCULAR VOLUME 98 fL (80-99); MONOCYTES # (AUTO) 0.7 10^3/uL (0.0-1.0); MONOCYTES % (AUTO) 9 % (0-12); NEUTROPHILS # (AUTO) 5.9 10^3/uL (1.8-7.8); NEUTROPHILS % (AUTO) 76 % (42-75); PLATELET COUNT 145 10^3/uL (130-400); WHITE BLOOD COUNT 7.7 10^3/uL (4.3-11.0)
[2022-12-12 10:45] LABS: ALBUMIN 3.8 GM/DL (3.2-4.5); BILIRUBIN,TOTAL 0.5 MG/DL (0.1-1.0); CALCIUM 8.5 MG/DL (8.5-10.1); CREATININE SERUM 0.88 MG/DL (0.60-1.30)
== END 2022-12-27 | disposition home or self-care (01) ==
LOC: ONC 09:48
PROVIDERS: ATTEND Internal Medicine Hematology & Oncology
DX: C83.18 Mantle cell lymphoma, lymph nodes of multiple sites (principal); C85.10 Unspecified B-cell lymphoma, unspecified site; J01.90 Acute sinusitis, unspecified; G62.9 Polyneuropathy, unspecified; K21.9 Gastro-esophageal reflux disease without esophagitis; I71.9 Aortic aneurysm of unspecified site, without rupture; Z87.891 Personal history of nicotine dependence; Z98.890 Other specified postprocedural states; Z98.1 Arthrodesis status
CPT/HCPCS: 80053; 85025; G0463; 36415; 99214